=== PATIENT | female | born 1975 | race Caucasian/White ===

== ENCOUNTER 2017-03-12 17:46 | Emergency (ER) | payer OTHER ==
[~2017-03-12 17:46] MED LIST: BACTRIM DS TABL1 TA2 PO; CLINDAMYCIN HC300 MG PO; EAR DROPS; ERYTHROMYCIN B500 MG PO; FLAGYL PO; MORGIDOX100 MG PO; NAPROSYN500 MG PO; NO MEDICATIONS; PERCODAN TABLET1 TA1 PO; PHENERGAN SUPP25 M1 PR; PHENERGAN25 MG PO; ZOFRAN PO; ZOFRANODT PO
== END 2017-03-12 18:13 | disposition home or self-care (01) ==
LOC: CED 17:46 → CFTX 17:46
DX: L02.214 Cutaneous abscess of groin (principal); Z98.51 Tubal ligation status; Z88.0 Allergy status to penicillin; F17.200 Nicotine dependence, unspecified, uncomplicated
CPT/HCPCS: 99282